=== PATIENT | male | born 1995 | race Caucasian/White ===

== ENCOUNTER 2017-12-20 16:13 | Emergency (ER) | payer OTHER ==
[~2017-12-20] VITALS: Ht 180.3 cm; Wt 65.9 kg
[2017-12-20 19:50] VITALS: BP 152/95
[2017-12-20] MEDS ORDERED: HYDROCODONE/ACETAMINOPHEN 5-325 MG TABLET PO ONE (20:45)
[2017-12-20] MEDS ORDERED: AMOXICILLIN TRIHYDRATE 250 MG CAPSULE PO ONE (20:45)
== END 2017-12-20 21:01 | disposition home or self-care (01) ==
LOC: EMS 16:14
DX: S03.2XXA Dislocation of tooth, initial encounter (principal); X58.XXXA Exposure to other specified factors, initial encounter; Y93.89 Activity, other specified; Y92.89 Other specified places as the place of occurrence of the external cause; Y99.8 Other external cause status
CPT/HCPCS: 99283

== ENCOUNTER 2019-05-24 16:49 | Emergency (ER) | payer OTHER ==
[~2019-05-24] VITALS: Ht 180.3 cm; Wt 71.8 kg
[2019-05-24] MEDS ORDERED: KETOROLAC TROMETHAMINE 60 MG/2 ML VIAL IM ONE (17:30)
[2019-05-24] MEDS ORDERED: PENICILLIN V POTASSIUM 500 MG TABLET PO ONE (17:30)
[2019-05-24 17:46] VITALS: BP 116/74
== END 2019-05-24 18:31 | disposition home or self-care (01) ==
LOC: EMS 16:49
DX: K05.10 Chronic gingivitis, plaque induced (principal)
CPT/HCPCS: 96372; 99283; J1885

== ENCOUNTER 2019-08-31 09:34 | Emergency (ER) | payer OTHER ==
[~2019-08-31] VITALS: Ht 180.3 cm; Wt 70.9 kg
[2019-08-31] MEDS ORDERED: ACETAMINOPHEN 500 MG TABLET PO ONE (10:30)
[2019-08-31] MEDS ORDERED: BACITRACIN 0.9 GM PACKET OINTMENT TP ONE (10:30)
[2019-08-31 10:33] VITALS: BP 126/67
== END 2019-08-31 11:32 | disposition home or self-care (01) ==
LOC: EMS 09:34
DX: S90.112A Contusion of left great toe without damage to nail, initial encounter (principal); W22.8XXA Striking against or struck by other objects, initial encounter; Y93.89 Activity, other specified; Y92.89 Other specified places as the place of occurrence of the external cause; Y99.8 Other external cause status

== ENCOUNTER 2019-09-14 16:43 | Emergency (ER) | payer OTHER ==
[~2019-09-14] VITALS: Ht 170.2 cm; Wt 70.5 kg
[2019-09-14] MEDS ORDERED: FLUORESCEIN SODIUM 1 MG STRIP OD ONE (17:15)
[2019-09-14] MEDS ORDERED: PROPARACAINE HCL 0.5% 15 ML OPHTHALMIC SOLUTION OD ONE (17:15)
[2019-09-14] MEDS ORDERED: DEXTRAN 70 0.1%/HYPROMELL 0.3% 0.9 ML OPHTHALMIC SOLUTION [PF] OD ONE (17:45)
[2019-09-14 18:17] VITALS: BP 125/65
== END 2019-09-14 18:22 | disposition home or self-care (01) ==
LOC: EMS 16:44
DX: H11.151 Pinguecula, right eye (principal); R03.0 Elevated blood-pressure reading, without diagnosis of hypertension

== ENCOUNTER 2022-02-21 17:50 | Emergency (ER) | payer MEDICAID, OTHER ==
[~2022-02-21] VITALS: Ht 172.7 cm; Wt 72.0 kg
[2022-02-21 19:43] LABS: INFLUENZA TYPE B NEGATIVE FOR TYPE B (NEGATIVE)
[2022-02-21] MEDS ORDERED: ACETAMINOPHEN 500 MG TABLET PO ONE (20:00)
[2022-02-21 20:08] LABS: INFLUENZA TYPE A POSITIVE FOR TYPE A (NEGATIVE)
[2022-02-21] MEDS ORDERED: OSEL75 PO (20:42)
[2022-02-21 20:45] VITALS: BP 129/78
== END 2022-02-21 20:57 | disposition home or self-care (01) ==
LOC: EMS 17:50
DX: J11.1 Influenza due to unidentified influenza virus with other respiratory manifestations (principal)
CPT/HCPCS: 87804; 99283

== ENCOUNTER 2022-03-28 16:26 | Emergency (ER) | payer MEDICAID ==
[~2022-03-28] VITALS: Ht 180.3 cm; Wt 75.5 kg
[~2022-03-28 16:26] MED LIST: OSEL75 PO
[2022-03-28] MEDS ORDERED: KETOROLAC TROMETHAMINE 60 MG/2 ML VIAL IM ONE (16:30)
[2022-03-28] MEDS ORDERED: LIDOCAINE 1% 10 ML VIAL SQ ONE (16:30)
[2022-03-28] MEDS ORDERED: POVIDONE-IODINE 10% 15 ML SOLUTION UD TP ONE (16:30)
[2022-03-28] MEDS ORDERED: BACITRACIN 0.9 GM PACKET OINTMENT TP ONE (16:30)
[2022-03-28] MEDS ORDERED: CYCLOBENZAPRINE HCL 10 MG TABLET PO ONE (16:30)
[2022-03-28 17:43] VITALS: BP 132/82
[2022-03-28] MEDS ORDERED: MUPI15CR12 TP (19:32)
== END 2022-03-28 20:19 | disposition home or self-care (01) ==
LOC: EMS 16:26
DX: S01.21XA Laceration without foreign body of nose, initial encounter (principal); V49.9XXA Car occupant (driver) (passenger) injured in unspecified traffic accident, initial encounter; Y93.89 Activity, other specified; Y92.89 Other specified places as the place of occurrence of the external cause; Y99.8 Other external cause status
CPT/HCPCS: 12011; 70450; 70486; 96372; 99284; J1885; J3490

== ENCOUNTER 2022-06-11 16:02 | Emergency (ER) | payer MEDICAID ==
[~2022-06-11] VITALS: Ht 180.3 cm; Wt 75.0 kg
[~2022-06-11 16:02] MED LIST changes: +MUPI15CR12 TP
[2022-06-11] MEDS ORDERED: SODIUM CHLORIDE 0.9% 250 ML IRRIG SOLUTION BOTTLE IRRIG ONE (18:15)
[2022-06-11] MEDS ORDERED: PERTUSS(ACELL),DIPH,TET VAC/PF 0.5 ML SYRINGE IM. ONE (18:15)
[2022-06-11 19:11] VITALS: BP 124/70
[2022-06-11] MEDS ORDERED: AMOX1TAB16 PO (19:12)
== END 2022-06-11 19:25 | disposition home or self-care (01) ==
LOC: EMS 16:05
DX: S81.051A Open bite, right knee, initial encounter (principal); Z79.899 Other long term (current) drug therapy; W54.0XXA Bitten by dog, initial encounter; Y93.89 Activity, other specified; Y92.89 Other specified places as the place of occurrence of the external cause; Y99.8 Other external cause status
CPT/HCPCS: 90471; 90715; 99283